=== PATIENT | female | born 1965 | race Caucasian/White ===

== ENCOUNTER 2016-08-24 21:27 | Emergency (ER) | payer BC ==
[2016-08-24] MEDS ORDERED: Ketorolac 30 MG/ML SDV IM ONE (21:40)
--- NOTE | 2016-08-24 21:42 | EDM.PDOC ---
ED HPI GENERAL MEDICAL PROBLEM - General Chief Complaint: ENT Problem Stated Complaint: THROAT, EAR PAIN, [id number] Time Seen by Provider: 08/24/16 21:39 Source of Information: Reports: Patient History Limitations: Reports: No Limitations - History of Present Illness INITIAL COMMENTS - FREE TEXT/NARRATIVE: c/o sore throat on right side radiating up her right ear. can't swallow or eat anything. Right Throat Pain Score (Numeric/FACES): 10 - Related Data Allergies Allergy/AdvReac Type Severity Reaction Status Date / Time No Known Allergies Allergy Verified 08/24/16 21:34 Home Meds: Home Meds Multivitamin [Multivitamins] 1 each PO DAILY 08/24/16 [History] ED ROS ENT - Review of Systems Review Of Systems: ROS reveals no pertinent complaints other than HPI. ED EXAM, ENT - Physical Exam Exam: See Below Exam Limited By: No Limitations General Appearance: Alert, WD/WN, Mild Distress (tearful), Other (tearful) Ears: Normal External Exam, Normal Canal, Hearing Grossly Normal, Normal TMs Mouth/Throat: Pharyngeal Erythema, Tonsillar Erythema, Tonsillar Swelling, Other (right>) Head: Atraumatic Neck: Non-Tender, Full Range of Motion Respiratory/Chest: No Respiratory Distress Cardiovascular: Regular Rate, Rhythm GI/Abdominal: Soft, Non-Tender Neurological: Alert, Oriented, Normal Cognition, Normal Gait, No Motor/Sensory Deficits Psychiatric: Tearful Skin: Warm, Dry Lymphatic: No Adenopathy Course - Orders/Labs/Meds Orders: Active Orders 24 hr Category Date Time Status STREP SCRN A RAPID W CULT CONF [RM] Stat Lab 08/24/16 21:30 Received Meds: Medications Discontinued Medications Generic Name Dose Route Start Last Admin Trade Name Sophia PRN Reason Stop Dose Admin Ketorolac Tromethamine 30 mg 08/24/16 21:40 08/24/16 21:48 Toradol IM 08/24/16 21:41 30 mg ONETIME ONE Administration - Re-Assessments/Exams Free Text/Narrative Re-Assessment/Exam: 08/24/16 21:58 negative results discussed with Pt who feels ABX would help. ABX discussed with Pt. Departure - Departure Time of Disposition: 22:00 Disposition: Home, Self-Care 01 Condition: Good Clinical Impression: Tonsillitis - Discharge Information Instructions: Tonsillitis, [id number] Forms: ED Department Discharge Additional Instructions: 1) avoid solid foods and scratchy foods 2) have popsicle, jello, ice cream 3) take tylenol or motrin for fever 4) follow up at clinic or recheck as needed - My Orders Last 24 Hours: My Active Orders 08/24/16 21:30 STREP SCRN A RAPID W CULT CONF [RM] Stat - Assessment/Plan Last 24 Hours: My Active Orders 08/24/16 21:30 STREP SCRN A RAPID W CULT CONF [RM] Stat
[2016-08-24] MEDS ORDERED: cefTRIAXone 1 GM, Lidocaine 1% 2.1 ML IM ONE ×2 (22:00)
[2016-08-24 22:53] VITALS: BP 124/68
== END 2016-08-24 22:40 | disposition home or self-care (01) ==
LOC: DL.ED 21:27
DX: J03.90 Acute tonsillitis, unspecified (principal); Z79.899 Other long term (current) drug therapy
CPT/HCPCS: 87081; 87430; 96372; 99283; J0696; J1885

== ENCOUNTER 2016-08-26 14:14 | Observation (INO) | payer BC ==
[2016-08-26] MEDS ORDERED: Dexamethasone 4 MG/ML SDV IVPUSH ONE (14:54)
[2016-08-26] MEDS ORDERED: Sodium Chloride 0.9% 1,000 ML IV ONE (14:54)
[2016-08-26] MEDS ORDERED: Clindamycin Phosphate 900 MG in Sodium Chloride 0.9% 100 ML IV ONE (14:54)
[2016-08-26] MEDS ORDERED: Morphine 4 MG/ML Syringe IVPUSH ONE (14:54)
--- NOTE | 2016-08-26 15:17 | EDM.PDOC ---
ED HPI GENERAL MEDICAL PROBLEM - General Chief Complaint: ENT Problem Stated Complaint: [id number] THROAT AND EAR Time Seen by Provider: 08/26/16 14:45 Source of Information: Reports: Patient History Limitations: Reports: No Limitations - History of Present Illness INITIAL COMMENTS - FREE TEXT/NARRATIVE: Patient comes emergency Department today with complaints of a sore throat. She has had a sore throat for the past 3-4 days she was initially seen in the emergency department and was given a shot of Rocephin and told to follow-up if it does not improve. This was done 2-3 days ago. Over the past 24-48 hours the swelling has gotten much more on the right lower aspect of her jaw as well as it is difficult for her to talk. She is able to swallow water although it is somewhat painful. She has not been nauseated or vomiting. Denies any fever but does complain of chills. She does complain of right ear pain as well. She denies any abdominal pain chest pain shortness of breath or difficulty breathing. Right Throat Pain Score (Numeric/FACES): 8 - Related Data Allergies Allergy/AdvReac Type Severity Reaction Status Date / Time No Known Allergies Allergy Verified 08/26/16 14:35 Home Meds: Home Meds Multivitamin [Multivitamins] 1 each PO DAILY 08/24/16 [History] Past Medical History - Past Health History Medical/Surgical History: Denies Medical/Surgical History Social & Family History - Family History Family Medical History: Noncontributory - Tobacco Use Smoking Status *Q: Current Every Day Smoker Years of Tobacco use: 30 Packs/Tins Daily: 1 - Caffeine Use Caffeine Use: Reports: Coffee - Recreational Drug Use Recreational Drug Use: No ED ROS ENT - Review of Systems Review Of Systems: ROS reveals no pertinent complaints other than HPI. ED EXAM, ENT - Physical Exam Exam: See Below Text/Narrative:: Patient sitting up in bed with no drooling appears in no acute distress. Her voice is muffled and a hot potato type voice. Exam Limited By: No Limitations General Appearance: Alert, WD/WN, No Apparent Distress Eye Exam: Bilateral Eye: Normal Inspection Ears: Normal External Exam, Normal Canal, Hearing Grossly Normal, Normal TMs Nose: Normal Inspection, Normal Mucousa, No Blood Mouth/Throat: Normal Gums, Normal Lips, Muffled Voice, Throat Pain, Tonsillar Erythema (Right-sided with swelling and protrusion of the right tonsil into the posterior pharynx. 2+ swelling.). No: Drooling, Dry Mucous Membrane, Gum Swelling, Lip Swelling, Lip Ulcers, Tonsillar Exudates, Tonsillar Swelling, Uvular Deviation, Uvular Edema Head: Atraumatic, Normocephalic Neck: Lymphadenopathy (R) (There is rather large adenopathy in the tonsillar region on the right neck.) Respiratory/Chest: No Respiratory Distress, Lungs Clear, Normal Breath Sounds, No Accessory Muscle Use Cardiovascular: Normal Peripheral Pulses, Regular Rate, Rhythm GI/Abdominal: Normal Bowel Sounds, Soft, Non-Tender Back: Normal Inspection Extremities: Normal Inspection, Normal Capillary Refill Neurological: Alert Psychiatric: Normal Affect Skin: Dry, Intact, Pallor Course - Vital Signs Last Recorded V/S: Last Vital Signs Temp 37.2 C 08/26/16 14:29 Pulse 103 H 08/26/16 14:29 Resp 20 08/26/16 14:29 BP 139/88 08/26/16 14:29 Pulse Ox 103 H 08/26/16 14:29 - Orders/Labs/Meds Orders: Active Orders 24 hr Category Date Time Status Peripheral IV Care [RC] . DIRECTED Care 08/26/16 14:55 Active CULTURE BLOOD [BC] Stat Lab 08/26/16 15:09 Received CULTURE BLOOD [BC] Stat Lab 08/26/16 15:14 Received Sodium Chloride 0.9% [Saline Flush] Med 08/26/16 14:54 Active 10 ml FLUSH ASDIRECTED PRN Blood Culture x2 Reflex Set [OM.PC] Stat Oth 08/26/16 14:57 Ordered Peripheral IV Insertion Adult [OM.PC] Stat Oth 08/26/16 14:54 Ordered Medication Orders Acetaminophen (Tylenol) 650 mg PO Q6H PRN PRN Reason: mild pain Potassium Chloride/Dextrose/Sod Cl (D5 1/2 Ns W/ 20 Meq/L Kcl) 1,000 mls @ 125 mls/hr IV ASDIRECTED EUGENE Last Admin: 08/26/16 18:23 Dose: 125 mls/hr Piperacillin Sod/Tazobactam (Sod 3.375 gm/ Sodium Chloride) 100 mls @ 200 mls/ hr IV Q6H EUGENE Last Admin: 08/26/16 18:42 Dose: 200 mls/hr Methylprednisolone Sodium Succinate (Solu-Medrol) 40 mg IVPUSH Q8H EUGENE Last Admin: 08/26/16 18:37 Dose: 40 mg Nicotine (Habitrol) 14 mg TRDERM DAILY EUGENE Oxycodone HCl (Oxycodone) 5 mg PO Q4H PRN PRN Reason: moderate pain Sodium Chloride (Saline Flush) 10 ml FLUSH ASDIRECTED PRN PRN Reason: Keep Vein Open Labs: Laboratory Tests 08/26/16 08/26/16 08/26/16 Range/Units 15:09 15:09 15:09 WBC 14.1 H (5.0-10.0) 10^3/uL RBC 5.01 (4.2-5.4) 10^6/uL Hgb 15.2 (12.0-16.0) g/dL Hct 44.2 (37.0-47.0) % MCV 88.2 (80-100) fL MCH 30.3 (27.0-34.0) pg MCHC 34.4 (33.0-35.0) g/dL Plt Count 175 (150-450) 10^3/uL Neut % (Auto) 77.9 H (42.2-75.2) % Lymph % (Auto) 13.0 L (20.5-50.1) % Braxton % (Auto) 8.6 H (2-8) % Eos % (Auto) 0.4 L (1.0-3.0) % Baso % (Auto) 0.1 (0.0-1.0) % Sodium 139 (135-145) mmol/L Potassium 2.9 L (3.6-5.0) mmol/L Chloride 102 (101-111) mmol/L Carbon Dioxide 21.0 (21.0-31.0) mmol/L Anion Gap 18.9 BUN 8 (7-18) mg/dL Creatinine 0.5 L (0.6-1.3) mg/dL Est Cr Clr Drug Dosing 120.21 mL/min Estimated GFR (MDRD) > 60 BUN/Creatinine Ratio 16.00 Glucose 94 (74-105) mg/dL Lactic Acid (0.5-2.2) mmol/L Calcium 9.2 (8.4-10.2) mg/dl Total Bilirubin 0.9 (0.2-1.0) mg/dL AST 17 (10-42) IU/L ALT 11 (10-60) IU/L Alkaline Phosphatase 63 (42-121) IU/L C-Reactive Protein 18.9 H (0.0-1.3) mg/dL Total Protein 7.7 (6.7-8.2) g/dl Albumin 4.3 (3.2-5.5) g/dl Globulin 3.4 Albumin/Globulin Ratio 1.26 06/25/17 Range/Units 15:09 WBC (5.0-10.0) 10^3/uL RBC (4.2-5.4) 10^6/uL Hgb (12.0-16.0) g/dL Hct (37.0-47.0) % MCV (80-100) fL MCH (27.0-34.0) pg MCHC (33.0-35.0) g/dL Plt Count (150-450) 10^3/uL Neut % (Auto) (42.2-75.2) % Lymph % (Auto) (20.5-50.1) % Braxton % (Auto) (2-8) % Eos % (Auto) (1.0-3.0) % Baso % (Auto) (0.0-1.0) % Sodium (135-145) mmol/L Potassium (3.6-5.0) mmol/L Chloride (101-111) mmol/L Carbon Dioxide (21.0-31.0) mmol/L Anion Gap BUN (7-18) mg/dL Creatinine (0.6-1.3) mg/dL Est Cr Clr Drug Dosing mL/min Estimated GFR (MDRD) BUN/Creatinine Ratio Glucose (74-105) mg/dL Lactic Acid 1.5 (0.5-2.2) mmol/L Calcium (8.4-10.2) mg/dl Total Bilirubin (0.2-1.0) mg/dL AST (10-42) IU/L ALT (10-60) IU/L Alkaline Phosphatase (42-121) IU/L C-Reactive Protein (0.0-1.3) mg/dL Total Protein (6.7-8.2) g/dl Albumin (3.2-5.5) g/dl Globulin Albumin/Globulin Ratio Meds: Medications Generic Name Dose Route Start Last Admin Trade Name Sophia PRN Reason Stop Dose Admin Acetaminophen 650 mg 08/26/16 17:52 Tylenol PO Q6H PRN mild pain Potassium Chloride/Dextrose/Sod Cl 1,000 mls @ 125 mls/hr 08/26/16 18:00 18:23 D5 1/2 Ns W/ 20 Meq/L Kcl IV 125 mls/hr ASDIRECTED EUGENE Administration Piperacillin Sod/Tazobactam 100 mls @ 200 mls/hr 08/26/16 18:00 08/26/16 18: 42 Sod 3.375 gm/ Sodium Chloride IV 200 mls/hr Q6H EUGENE Administration Methylprednisolone Sodium Succinate 40 mg 08/26/16 18:00 08/26/16 18:37 Solu-Medrol IVPUSH 40 mg Q8H EUGENE Administration Nicotine 14 mg 08/27/16 09:00 Habitrol TRDERM DAILY EUGENE Oxycodone HCl 5 mg 08/26/16 17:53 Oxycodone PO Q4H PRN moderate pain Sodium Chloride 10 ml 08/26/16 14:54 Saline Flush FLUSH ASDIRECTED PRN Keep Vein Open Discontinued Medications Generic Name Dose Route Start Last Admin Trade Name Sophia PRN Reason Stop Dose Admin Dexamethasone 10 mg 08/26/16 14:54 08/26/16 15:13 Dexamethasone IVPUSH 08/26/16 14:55 10 mg ONETIME ONE Administration Clindamycin Phosphate 900 mg/ 106 mls @ 200 mls/hr 08/26/16 14:54 08/26/16 15 :14 Sodium Chloride IV 08/26/16 15:25 200 mls/hr ONETIME ONE Administration Sodium Chloride 1,000 mls @ 999 mls/hr 08/26/16 14:54 08/26/16 15:12 Normal Saline IV 08/26/16 15:54 999 mls/hr .BOLUS ONE Administration Sodium Chloride 1,000 mls @ 125 mls/hr 08/26/16 17:45 Normal Saline IV ASDIRECTED EUGENE Iopamidol 50 ml 08/26/16 15:31 08/26/16 15:55 Isovue-300 (61%) IVPUSH 08/26/16 15:32 50 ml ONETIME ONE Administration Morphine Sulfate 4 mg 08/26/16 14:54 08/26/16 15:13 Morphine IVPUSH 08/26/16 14:55 4 mg ONETIME ONE Administration - Radiology Interpretation Free Text/Narrative:: CT soft tissue of the neck per radiology. Right [place] tonsillitis. Probable early intra-tonsillar abscess formation. Multinodular goiter, thyroid ultrasound recommended. - Re-Assessments/Exams Free Text/Narrative Re-Assessment/Exam: 08/26/16 16:33 IV normal saline 1 L wide open for rehydration. She has only drank 1-2 bottles of water in the past 4 days. 08/26/16 16:33 Morphine IV push for pain. Dexamethasone 10 mg IV push for swelling. Clindamycin [address] soft tissue neck with contrast looking for possible tonsillar abscess. 08/26/16 1730 Although ENT said outpatient therapy is appropriate at this time I feel that observation may be the best course of action at this time as she has difficulty eating and swallowing. That she is getting appropriate nutrition and able to tolerate her oral antibiotics I think that observation is the best choice at this time. I did have come and see the patient in the emergency department. He agreed to admit her under observation over the night for IV hydration and antibiotics. The patient was comfortable with this plan. Departure - Departure Time of Disposition: 17:45 Disposition: Admitted As Inpatient 68 Clinical Impression: Tonsillar abscess - Discharge Information ED Communication - ED Communication Date/Time Date: 08/26/16 (I called and spoke with ENT in [place] Dr. Ryan about the findings. He feels that outpatient oral antibiotics would be appropriate at this time and follow up with ENT on saturday in [place]. ) Time Called: 17:30 - My Orders Last 24 Hours: My Active Orders 08/26/16 14:54 Sodium Chloride 0.9% [Saline Flush] 10 ml FLUSH ASDIRECTED PRN Peripheral IV Insertion Adult [OM.PC] Stat 08/26/16 14:55 Peripheral IV Care [RC] . DIRECTED 08/26/16 14:57 Blood Culture x2 Reflex Set [OM.PC] Stat 08/26/16 15:09 CULTURE BLOOD [BC] Stat 08/26/16 15:14 CULTURE BLOOD [BC] Stat - Assessment/Plan Last 24 Hours: My Active Orders 08/26/16 14:54 Sodium Chloride 0.9% [Saline Flush] 10 ml FLUSH ASDIRECTED PRN Peripheral IV Insertion Adult [OM.PC] Stat 08/26/16 14:55 Peripheral IV Care [RC] . DIRECTED 08/26/16 14:57 Blood Culture x2 Reflex Set [OM.PC] Stat 08/26/16 15:09 CULTURE BLOOD [BC] Stat 08/26/16 15:14 CULTURE BLOOD [BC] Stat Assessment:: Tonsilar abscess with peritonsilar abcess. Plan: Admit [place] for obs, IV fluids and anti-biotics.
[2016-08-26] MEDS ORDERED: Iopamidol 612 MG/ML 50 ML SDV IVPUSH ONE (15:31)
[2016-08-26 15:44] LABS: CHLORIDE,CL 102 mmol/L (101-111); SODIUM,NA 139 mmol/L (135-145)
[2016-08-26] MEDS ORDERED: Sodium Chloride 0.9% 1,000 ML IV SCH (17:45)
[2016-08-26] MEDS ORDERED: Acetaminophen 325 MG Tab PO PRN (17:52)
[2016-08-26] MEDS ORDERED: oxyCODONE 5 MG Tab PO PRN (17:53)
[2016-08-26] MEDS: D5 1/2 NS w/ 20 mEq/L KCl 1,000 ML IV SCH (18:23)
--- NOTE | 2016-08-26 18:25 | HP ---
CHIEF COMPLAINT: Odynophagia and sore throat. HISTORY OF PRESENT ILLNESS: The patient is a 50-year-old lady who was seen in the emergency room complaining of sore throat, that has been going on for the last 5 days and she was seen in the emergency room last Saturday. She was given a shot of Rocephin and was advised to follow up with her primary care physician, but this did not improve. The sore throat and inability to swallow has continued and actually has gotten worse, so she came back to the emergency room. In the emergency room, she was evaluated and a CAT scan of the neck was done and this showed intratonsillar abscess. Recommendation is to treat with IV antibiotics and follow up with ENT. The patient mentioned that she had the chills, but she denies any chest pain, shortness of breath, abdominal pain, vomiting, dysuria, or any other complaints. PAST MEDICAL HISTORY: Basically unremarkable. FAMILY HISTORY: Noncontributory. SOCIAL HISTORY: The patient is . Smokes cigarettes, drinks alcohol occasionally. HOME MEDICATIONS: Multivitamin. REVIEW OF SYSTEMS: As in HPI. The rest of the review of systems is negative. PHYSICAL EXAMINATION: General: The patient is very pleasant, she is alert and oriented, not in any acute distress. SHEENT: Negative for any drooling. Posterior pharynx is hyperemic, and there is no JVD. Neck: Supple. There is some submandibular lymphadenopathy. Heart: Regular rate and rhythm. Normal S1 and S2. No gallops. No rubs. Lungs: Equal bilaterally. No crackles. No wheezing. No stridor. Abdomen: Soft and nontender. Bowel sounds positive. Extremities: Negative for any pedal edema. No calf tenderness. LABORATORY DATA: WBC is 14.1, hemoglobin is 15.2, hematocrit 44.2, and platelet is 175. Comp panel remarkable for potassium of 2.9. C-reactive protein is 18.9. The rest of the panel unremarkable. CAT scan of the neck per Radiology showed right palatine tonsillitis, probable early intratonsillar abscess formation and there is also multinodular goiter. ADMITTING DIAGNOSES: 1. Intratonsillar abscess on the right. 2. Odynophagia secondary to #1. Patient in the emergency room was given morphine, dexamethasone, and clindamycin. The patient was admitted to General Medicine floor for observation and we will continue with IV antibiotics and we will also continue with steroids/Solu-Medrol. The rest of the management as necessary. The patient will be given IV fluids as well as potassium supplementation. [facility] /[id number]
[2016-08-26] MEDS: methylPREDNISolone Sodium Succinate 40 MG/1 ML SDV IVPUSH SCH (18:37)
[2016-08-26] MEDS: Piperacillin/Tazobactam 3.375 GM in Sodium Chloride 0.9% 100 ML IV SCH (18:42)
[2016-08-27] MEDS: Piperacillin/Tazobactam 3.375 GM in Sodium Chloride 0.9% 100 ML IV SCH ×5 (00:27→23:29)
[2016-08-27] MEDS: methylPREDNISolone Sodium Succinate 40 MG/1 ML SDV IVPUSH SCH ×3 (01:54→17:59)
[2016-08-27] MEDS: D5 1/2 NS w/ 20 mEq/L KCl 1,000 ML IV SCH (04:03)
[2016-08-27 07:12] LABS: CHLORIDE,CL 108 mmol/L (101-111); SODIUM,NA 138 mmol/L (135-145)
[2016-08-27] MEDS: Nicotine 14 MG/24 Hr Patch TRDERM SCH (09:14)
[2016-08-27] MEDS ORDERED: LORazepam 0.5 MG Tab PO SCH (21:00)
[2016-08-27] MEDS: Sodium Chloride 0.9% 10 ML Syringe FLUSH PRN (23:28)
[2016-08-28] MEDS: Sodium Chloride 0.9% 10 ML Syringe FLUSH PRN (00:02)
--- NOTE | 2016-08-28 05:40 | PN ---
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 CT scan showed a right tonsillitis with possible early abscess development. She was admitted and started on Zosyn 3.375 g every 6 hours. She has done very well overnight. She definitely is feeling better. For now, she has been on a clear liquid diet and we will advance that to a soft diet today as tolerated. Repeat lab work this morning shows the white count has come down from 14,000 to 8,800. Hemoglobin and hematocrit are stable at 13 and 39, platelets are normal. Chemistry showed normal electrolytes after correction of her potassium. BUN and creatinine are 6 and 0.5 with a GFR of more than 60. Of note is the fact however that her blood sugars are quite high today. Her peripheral blood sugar this morning was 226. We ordered bedside glucose checks and these have continued throughout the day and were in the range of 223, 183, and 210. Wanda has no history of diabetes, although there is a strong family history. This hyperglycemia has probably been provoked by the infection, and the use of steroids. Her admitting blood sugar was 94 prior to initiation of steroids. OBJECTIVE: General: On exam, she looks well. She is able to talk clearly. Vital Signs: Blood pressure was 127/76, pulse 77, respiratory rate 20, oxygen saturation 98% on room air. She is afebrile. HEENT: Showed neck to be supple. ENT was clear. Mouth showed moist mucous membranes. There is notable swelling of the right tonsil, but no marked erythema, no exudate. There is no marked swelling in the neck or marked adenopathy, no stridor. No drooling. Chest: Showed clear bilateral breath sounds. Heart: Showed regular rate and rhythm. Abdomen was benign. Extremities:Showed no edema. Calves were soft and nontender. The CT scan of the soft tissues of neck, which was performed on day of admission , also showed a bilateral multinodular thyroid. I discussed this with Wanda. The multinodular thyroid and her blood sugars will need followup after discharge. We will make arrangements for her to have followup lab work, as well as a thyroid ultrasound performed at the clinic. We discussed her case today with Dr. Denver Gutierrez of ENT. He will see Wanda in followup at the clinic this August 29 at 10:30 a.m. We will discharge her on Augmentin. Overall, she does seem to be improved and doing better since the time of admission. She continues on IV Solu-Medrol, we are tapering this and we will taper this down to a short course of oral steroids at the time of discharge. We have discontinued her IV fluids and advanced her diet to a soft diet. No other changes are made. [facility] /[id number] MTDD
[2016-08-28] MEDS: methylPREDNISolone Sodium Succinate 40 MG/1 ML SDV IVPUSH SCH (05:44)
[2016-08-28] MEDS: Piperacillin/Tazobactam 3.375 GM in Sodium Chloride 0.9% 100 ML IV SCH (05:52)
[2016-08-28] MEDS ORDERED: Amoxicillin/Clavulanate K 500-125 MG Tab PO ONE (07:55)
[2016-08-28] MEDS ORDERED: predniSONE 10 MG Tab PO ONE (07:55)
[2016-08-28 08:01] VITALS: BP 115/76
[2016-08-28] MEDS: Nicotine 14 MG/24 Hr Patch TRDERM SCH (08:17)
--- NOTE | 2016-09-18 02:37 | DISCH ---
DISCHARGE DIAGNOSES: 1. Acute right tonsillitis. 2. Probable early intra-tonsillar abscess formation. 3. Multinodular goiter seen on CT scan soft tissues of the neck. 4. Elevated blood sugars during treatment. Blood sugar 226, improved to 101 on the day of discharge. 5. Tobacco habituation. 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 She stated she had a sore throat for 3-4 days prior to admission. She was initially seen in the emergency room, at that time, was given a shot of Rocephin and told to follow up with the symptoms and symptoms did not improve. In the 24-48 hours prior to admission, the swelling of the right tonsil had become worse and pain has extended into the lower aspect of the right jaw and became difficult to talk. She is able to swallow. There was no stridor. There had been no other associated symptoms such as fever, nausea, and vomiting. She did complain of chills. In the Emergency Department, she was found to have enlarged right tonsil with inflammation and associated swelling. A CT scan of the neck with IV contrast was performed and showed a right palatine tonsillitis with a possible early intratonsillar abscess. She is admitted for further management. Pertinent labs and x-rays. CBC at the time of admission was 14,000 with a slight left shift. At the time of discharge, it was 8.8. Hemoglobin and hematocrit 13.4 and 39. Platelets were normal. Electrolytes showed potassium of 2.9 on admission and this improved to 3.9. BUN and creatinine were 6 and 0.5 with a GFR of more than 60. Admission blood sugar was 94. She received IV steroids while in the hospital and blood sugars jairon and ranged from 226-210. On day of discharge, blood sugar was 101. LFTs were unremarkable. Lactic acid was normal at 1.5. CRP was markedly elevated at 18.9. A CT scan of soft tissue of the neck was obtained with the use of intravenous contrast. This showed right palatine tonsillitis with a probable early intra- tonsillar abscess formation. There was mild right oropharyngeal effacement with mild displacement of the airway from right to left. They are reactive carotid lymph nodes on the right. Also incidentally noted was the fact that she had a bilateral multinodular thyroid. A large 4 x 2 x 2.4 cm mass was present in the right lobe, this was followed up by an outpatient ultrasound at discharge. Two sets of blood cultures remained without growth after 5 days. HOSPITAL COURSE: Wanda was admitted to observation. In the Emergency Department, she was given 1 dose of IV clindamycin and 10 mg of IV dexamethasone and started on IV fluids. Following admission, she was continued on IV Zosyn 3.375 g every 6 hours and IV fluids were changed to D5 half with potassium. She continued on Solu-Medrol 40 mg IV every 8 hours and this was gradually tapered. On the day of discharge, she was switched to oral Augmentin and oral prednisone. She was initially placed on a clear liquid diet and she tolerated this well and diet was advanced to soft, which she also tolerated. We encouraged her to be up and ambulatory and she gradually felt better and was active. We also encouraged her to stay until there was a significant improvement from the antibiotics because of the mild effacement of the posterior oropharynx. Review of her clinical data showed she was taking in adequate fluids. She was voiding. She was tolerating her diet. Vital signs were stable and she remained afebrile throughout the visit. As Wanda was up and ambulatory and tolerating diet, she felt ready to be discharged to home. We reviewed the findings with her. We did arrange for her to be seen by Dr. Davis Gutierrez of ENT. He will see her here in [place] on August 29 at 10:30 a.m. We also encouraged her to follow up with her provider, nAder Torres NP at the clinic for further workup of the multinodular thyroid. She will continue on Augmentin 500/125 mg every 12 hours for another 10 days. She will continue with warm salt water gargles if she is worse and not improving or if she has any concerns, she should follow up in clinic or return to the Emergency Department. DISCHARGE MEDICATIONS: 1. Augmentin 500/125 every 12 hours for 10 days. 2. Multivitamin 1 daily. ALLERGIES: No known allergies. PHYSICAL EXAMINATION: General: On the day of exam, she is doing very well. She is talking. There is no change in her voices. No drooling. She looks better and feels better. Vital Signs: Blood pressure is 115/76, pulse 76, respiratory rate 20, oxygen saturation 97% on room air, and she is afebrile. HEENT: Unremarkable. There was marked reduction in the swelling of the right tonsil with opening of the posterior oropharynx. The palpable swelling on the right side of the neck had also gone down. There was no stridor. There was no visible quarter on visual exam. On palpation, there is some fullness of the thyroid. Chest showed clear bilateral breath sounds. Heart: Showed regular rate and rhythm. Abdomen: Benign. Extremities: Showed no edema. Neurologically: She was intact. FOLLOWUP: Lab work had been ordered at the clinic following discharge. This included TSH, free T4, and T3. The TSH was low at less than 0.01 (lower limit of 0.34). Free T4 was within normal limits. T3 was also normal. We did obtain a followup hemoglobin A1c and this was 5.6%. An ultrasound of the thyroid was performed on the day of discharge from the hospital and the findings were consistent with multinodular goiter with diffusely enlarged thyroid gland and multiple heterogeneous nodules throughout the gland. Again the right lobe was seen a nodule measuring 4 x 4 x 3.2 cm with vascular signal. The largest nodule on the left was 2.7 x 1.6 x 1.3. The total thyroid volume was increased at 35.7 mL which is above the 97th percentile for females of 21.4 mL total volume. Arrangements have also been made for Wanda to see Dr. Esteban Petit of Endocrinology at [facility] on October 01. Imaging studies of the CT scan of the neck and the ultrasound were sent to the [facility]. CONDITION AT TIME OF DISCHARGE: Improved and stable. [facility] /[id number] MTDD
== END 2016-08-28 10:25 | disposition home or self-care (01) ==
LOC: DL.ED 14:14 → UNDOADMOB 17:32 → DL.MS 17:32
PROVIDERS: ADMIT Internal Medicine; ATTEND Internal Medicine
DX: J36 Peritonsillar abscess (principal); R13.10 Dysphagia, unspecified; Z79.899 Other long term (current) drug therapy; F17.210 Nicotine dependence, cigarettes, uncomplicated
CPT/HCPCS: 36415; 70491; 80048; 80053; 82962; 83605; 85025; 86140; 87040; 96365; 96366; 96367; 96375; 96376; 99285; A9270; G0378; J1100; J2270; J2543; J2920; J3480; J7030; J7050; Q9967; 96368; S0077